=== PATIENT | male | born 2000 | race Caucasian/White ===

== ENCOUNTER 2020-08-23 15:01 | Emergency (ER) | payer MEDICAID ==
[~2020-08-23] VITALS: Ht 165.1 cm; Wt 84.8 kg
[2020-08-23 15:23] VITALS: Ht 165.1 cm; Wt 84.8 kg
[2020-08-23] MEDS ORDERED: IBU600 M2 PO (16:12)
[2020-08-23 16:31] VITALS: BP 133/71
== END 2020-08-23 16:31 | disposition home or self-care (01) ==
LOC: ED 15:01
DX: S93.402A Sprain of unspecified ligament of left ankle, initial encounter (principal); S80.12XA Contusion of left lower leg, initial encounter; W23.0XXA Caught, crushed, jammed, or pinched between moving objects, initial encounter; Y93.89 Activity, other specified; Y92.488 Other paved roadways as the place of occurrence of the external cause; Y99.8 Other external cause status
CPT/HCPCS: 90715